=== PATIENT | male | born 1970 | race Caucasian/White ===

== ENCOUNTER 2023-12-26 15:06 | Emergency (ER) | payer OTHER, MEDICAID ==
[~2023-12-26] VITALS: Ht 175.3 cm; Wt 72.6 kg
[2023-12-26 15:24] VITALS: O2SAT 96
[2023-12-26 17:48] LABS: BASOPHILS % 0.6 % (0.0-2.0); EOSINOPHILS % 1.5 % (0.0-5.0); HEMATOCRIT. 27.5 % (42.0-52.0); HEMOGLOBIN. 9.2 g/dL (14.0-18.0); LYMPHOCYTES % 9.2 % (20.0-50.0); MEAN CORPUSCULAR HEMOGLOBIN 29.9 pg (28.0-32.0); MEAN CORPUSCULAR HGB CONC 33.6 g/dL (31.0-37.0); MEAN CORPUSCULAR VOLUME 88.9 fL (80.0-94.0); MEAN PLATELET VOLUME 8.7 fl (7.4-10.4); MONOCYTES % 4.8 % (2.0-8.0); NEUTROPHILS % 83.9 % (40.0-76.0); PLATELET 179 x1000/uL (130-400); RED BLOOD CELL COUNT 3.09 mill/uL (4.7-6.1); RED CELL DISTRIBUTION WIDTH 13.6 % (11.6-14.6); WHITE BLOOD COUNT 8.8 x1000/uL (4.5-11.0)
[2023-12-26 17:54] LABS: CHLORIDE 107 mEq/L (98-107); POTASSIUM 4.8 mEq/L (3.5-5.1); SODIUM 137 mEq/L (136-145)
[2023-12-26 17:55] LABS: CARBON DIOXIDE 23 mEq/L (21-32)
[2023-12-26 17:56] LABS: CALCIUM 9.1 mg/dL (8.7-10.4)
[2023-12-26 17:58] LABS: PROTHROMBIN TIME 10.9 sec (9.6-11.0)
[2023-12-26 18:00] LABS: CREATININE 3.4 mg/dL (0.6-1.3)
[2023-12-26 18:01] LABS: GLUCOSE 254 mg/dL (70-105); UREA NITROGEN BLOOD 57 mg/dL (9-23)
[2023-12-26 18:02] LABS: ALANINE AMINOTRANSFERASE 16 IU/L (10-49); ASPARTATE AMINOTRANSFERASE 16 IU/L (<34)
[2023-12-26 18:03] LABS: BILIRUBIN DIRECT 0.1 mg/dL (<=3.0); BILIRUBIN TOTAL 0.3 mg/dL (0.1-1.0); PROTEIN TOTAL 6.9 g/dL (6.0-8.3)
[2023-12-26 18:11] LABS: TROPONIN I HIGH SENSITIVITY 67 ng/L (3.0-53)
[2023-12-26] MEDS ORDERED: ASPIRIN 325MG EC TABLET PO ONE (18:15)
[2023-12-26] MEDS ORDERED: ACETAMINOPHEN 325MG TABLET PO PRN (20:30)
[2023-12-26] MEDS ORDERED: HYDRALAZINE 20MG/ML VIAL IV PRN (20:30)
[2023-12-26] MEDS ORDERED: ONDANSETRON HCL 4MG/2ML INJ IV PRN (20:30)
[2023-12-26] MEDS ORDERED: DEXTROSE 50% WATER 50ML SYRINGE IV PRN (20:30)
[2023-12-26] MEDS ORDERED: NITROGLYCERIN 0.4MG TABLET SL SL PRN (20:30)
[2023-12-26] MEDS ORDERED: IPRATROPIUM/ALBUTEROL 0.5-3(2.5)MG/3ML NEB HHN PRN (21:00)
[2023-12-26] MEDS ORDERED: BLOOD SUGAR DIAGNOSTIC STRIP TEST SCH (21:00)
[2023-12-26] MEDS ORDERED: ENOXAPARIN 150MG/ML SYR SUBCUT NR (21:00)
[2023-12-26] MEDS ORDERED: INSULIN LISPRO 100 UNITS/ML SUBCUT SCH (21:00)
[2023-12-26] MEDS ORDERED: ENOXAPARIN 80MG/0.8ML SYR SUBCUT NR (21:21)
[2023-12-26 22:16] LABS: TROPONIN I HIGH SENSITIVITY 66 ng/L (3.0-53)
[2023-12-27] MEDS: ATORVASTATIN CALCIUM 20MG TABLET PO SCH (02:03)
[2023-12-27] MEDS: FAMOTIDINE 20MG TABLET PO SCH (02:03)
[2023-12-27] MEDS: ASPIRIN 325MG EC TABLET PO NR (02:08)
[2023-12-27 02:21] VITALS: BP 120/50; PULSE 70; RESP 17; TEMP 36.78072; O2SAT 97
[2023-12-27] MEDS ORDERED: ASPIRIN 81MG EC TABLET PO SCH (09:00)
[2023-12-27] MEDS ORDERED: AMLODIPINE 5MG TABLET PO SCH (09:00)
[2023-12-27] MEDS ORDERED: ENOXAPARIN 80MG/0.8ML SYR SUBCUT SCH (20:00)
== END 2023-12-27 02:22 | disposition short-term general hospital (02) ==
LOC: ER 15:06 → EDBEDREQ 19:56 → EDBEDREQTM 19:56 → ER 12-27 02:22
DX: I21.4 Non-ST elevation (NSTEMI) myocardial infarction (principal); I10 Essential (primary) hypertension; E11.9 Type 2 diabetes mellitus without complications; Z88.8 Allergy status to other drugs, medicaments and biological substances; I25.2 Old myocardial infarction; R41.82 Altered mental status, unspecified
CPT/HCPCS: 99291; 93970; 70450; 76770; 80076; 80048; 82010; 83690; 85025; 85610; 84484; 36415; 71045; 93005; J1650